=== PATIENT | male | born 1945 | race Asian ===

== ENCOUNTER 2016-11-10 05:32 | Day surgery (SDC) | payer MEDICARE, OTHER ==
[~2016-11-10] VITALS: Ht 160 cm; Wt 74.5 kg
[~2016-11-10 05:32] MED LIST: ACETAMINOPHEN/CODEINE 300-30 MG TABLET PO PRN; RINGERS SOLUTION,LACTATED 500 ML IV ONE; TETRACAINE HCL/PF 0.5% 4 ML OPHTHALMIC SOLUTION OD ONE
[2016-11-10] MEDS ORDERED: FentaNYL CITRATE-PF 100 MCG/2 ML VIAL IVP ONE (05:33)
[2016-11-10] MEDS ORDERED: MIDAZOLAM HCL 2 MG/2 ML VIAL IVP ONE (05:33)
[2016-11-10] MEDS ORDERED: CYCLOPENTOLATE HCL 2% 2 ML OPHTHALMIC SOLUTION ONE (05:46)
[2016-11-10] MEDS ORDERED: TETRACAINE HCL/PF 0.5% 4 ML OPHTHALMIC SOLUTION ONE (05:46)
[2016-11-10] MEDS ORDERED: DICLOFENAC SODIUM 0.1% 2.5 ML OPHTHALMIC SOLUTION ONE (05:46)
[2016-11-10] MEDS ORDERED: RINGERS SOLUTION,LACTATED 500 ML IV ONE (05:47)
[2016-11-10] MEDS ORDERED: PHENYLEPHRINE HCL 2.5% 2 ML OPHTHALMIC SOLUTION ONE (05:47)
[2016-11-10] MEDS ORDERED: MOXIFLOXACIN HCL 0.5% 3 ML OPHTHALMIC SOLUTION ONE (05:47)
[2016-11-10] MEDS: DICLOFENAC SODIUM 0.1% 2.5 ML OPHTHALMIC SOLUTION OD SCH ×3 (06:14→06:35)
[2016-11-10] MEDS: PHENYLEPHRINE HCL 2.5% 2 ML OPHTHALMIC SOLUTION OD SCH ×3 (06:14→06:26)
[2016-11-10] MEDS: MOXIFLOXACIN HCL 0.5% 3 ML OPHTHALMIC SOLUTION OD SCH ×3 (06:14→06:35)
[2016-11-10] MEDS: CYCLOPENTOLATE HCL 2% 2 ML OPHTHALMIC SOLUTION OD SCH ×3 (06:14→06:26)
[2016-11-10] MEDS ORDERED: AMLO-511 PO (06:33)
[2016-11-10] MEDS ORDERED: SIMV-260 PO (06:33)
[2016-11-10] MEDS ORDERED: ADV250 IH (06:33)
[2016-11-10] MEDS ORDERED: ESOM20CA31 PO (06:33)
[2016-11-10] MEDS ORDERED: ASPI81 PO (06:33)
[2016-11-10] MEDS ORDERED: METO25 PO (06:33)
[2016-11-10] MEDS ORDERED: ALLO300 PO (06:33)
[2016-11-10] MEDS ORDERED: TRIA15CR48 TP (06:33)
[2016-11-10] MEDS ORDERED: MULT-1259 PO (06:33)
[2016-11-10] MEDS ORDERED: TERA5 PO (06:33)
[2016-11-10] MEDS ORDERED: AcetaZOLAMIDE 250 MG TABLET PO ONE (07:30)
[2016-11-10] MEDS ORDERED: AcetaZOLAMIDE 250 MG TABLET ONE (08:15)
== END 2016-11-10 08:40 | disposition home or self-care (01) ==
LOC: SURGERY 05:32
PROVIDERS: ATTEND Ophthalmology
DX: H26.9 Unspecified cataract (principal); E78.5 Hyperlipidemia, unspecified; K21.9 Gastro-esophageal reflux disease without esophagitis; G47.33 Obstructive sleep apnea (adult) (pediatric); Z95.1 Presence of aortocoronary bypass graft
CPT/HCPCS: 66984; 93005; C1780; J2250; J3010; J7120

== ENCOUNTER 2016-11-24 06:45 | Day surgery (SDC) | payer MEDICARE, OTHER ==
[~2016-11-24] VITALS: Ht 160 cm; Wt 75.0 kg
[~2016-11-24 06:45] MED LIST changes: -ACETAMINOPHEN/CODEINE 300-30 MG TABLET PO PRN; +ADV250 IH; +ALLO300 PO; +AMLO-511 PO; +ASPI81 PO; +ESOM20CA31 PO; +METO25 PO; +MULT-1259 PO; -RINGERS SOLUTION,LACTATED 500 ML IV ONE; +SIMV-260 PO; +TERA5 PO; -TETRACAINE HCL/PF 0.5% 4 ML OPHTHALMIC SOLUTION OD ONE; +TRIA15CR48 TP
[2016-11-24] MEDS ORDERED: FentaNYL CITRATE-PF 100 MCG/2 ML VIAL IVP ONE (06:46)
[2016-11-24] MEDS ORDERED: MIDAZOLAM HCL 2 MG/2 ML VIAL IVP ONE (06:46)
[2016-11-24] MEDS ORDERED: CYCLOPENTOLATE HCL 2% 2 ML OPHTHALMIC SOLUTION ONE (06:53)
[2016-11-24] MEDS ORDERED: DICLOFENAC SODIUM 0.1% 2.5 ML OPHTHALMIC SOLUTION ONE (06:53)
[2016-11-24] MEDS ORDERED: RINGERS SOLUTION,LACTATED 500 ML IV ONE ×2 (06:53→07:00)
[2016-11-24] MEDS ORDERED: TETRACAINE HCL/PF 0.5% 4 ML OPHTHALMIC SOLUTION ONE (06:53)
[2016-11-24] MEDS ORDERED: MOXIFLOXACIN HCL 0.5% 3 ML OPHTHALMIC SOLUTION ONE (06:54)
[2016-11-24] MEDS ORDERED: PHENYLEPHRINE HCL 2.5% 2 ML OPHTHALMIC SOLUTION ONE (06:54)
[2016-11-24] MEDS ORDERED: TETRACAINE HCL/PF 0.5% 4 ML OPHTHALMIC SOLUTION OS ONE (07:00)
[2016-11-24] MEDS ORDERED: ACETAMINOPHEN/CODEINE 300-30 MG TABLET PO PRN (07:00)
[2016-11-24] MEDS ORDERED: AcetaZOLAMIDE 250 MG TABLET PO ONE (07:00)
[2016-11-24] MEDS: MOXIFLOXACIN HCL 0.5% 3 ML OPHTHALMIC SOLUTION OS SCH ×3 (07:32→07:52)
[2016-11-24] MEDS: DICLOFENAC SODIUM 0.1% 2.5 ML OPHTHALMIC SOLUTION OS SCH ×3 (07:32→07:52)
[2016-11-24] MEDS: CYCLOPENTOLATE HCL 2% 2 ML OPHTHALMIC SOLUTION OS SCH ×3 (07:33→07:44)
[2016-11-24] MEDS: PHENYLEPHRINE HCL 2.5% 2 ML OPHTHALMIC SOLUTION OS SCH ×3 (07:33→07:44)
[2016-11-24] MEDS ORDERED: AcetaZOLAMIDE 250 MG TABLET ONE (09:21)
[2016-11-24] MEDS ORDERED: HYALURONATE SOD/CHONDROITIN SOD 0.5 ML VIAL IO ONE (17:51)
[2016-11-24] MEDS ORDERED: POVIDONE-IODINE 10% 15 ML SOLUTION UD ONE (17:51)
[2016-11-24] MEDS ORDERED: BRIMONIDINE TARTRATE 0.15% 5 ML OPHTHALMIC SOLUTION ONE (17:51)
[2016-11-24] MEDS ORDERED: LIDOCAINE HCL 1% 20 ML VIAL ONE (17:51)
[2016-11-24] MEDS ORDERED: TETRACAINE HCL VISCOUS 0.5% 5 ML OPHTHALMIC SOLUTION ONE (17:51)
[2016-11-24] MEDS ORDERED: HYALURONATE SODIUM 12 MG/ML 0.8 ML SYRINGE IO ONE (17:51)
[2016-11-24] MEDS ORDERED: EPINEPHrine 1:1,000 [1 MG/ML] AMP ONE (17:51)
== END 2016-11-24 09:35 | disposition home or self-care (01) ==
LOC: SURGERY 06:45
PROVIDERS: ATTEND Ophthalmology
DX: H25.12 Age-related nuclear cataract, left eye (principal); J45.909 Unspecified asthma, uncomplicated; I10 Essential (primary) hypertension; I25.10 Atherosclerotic heart disease of native coronary artery without angina pectoris; F41.9 Anxiety disorder, unspecified; Z91.013 Allergy to seafood; Z95.1 Presence of aortocoronary bypass graft
CPT/HCPCS: 66984; C1780; J0171; J2250; J3010; J3490 ×2; J7120